=== PATIENT | female | born 1990 | race Caucasian/White ===

== ENCOUNTER 2022-07-01 10:15 | Emergency (ER) | payer OTHER, SELFPAY ==
--- NOTE | 2022-07-01 10:18 | ED.SKABFB ---
HPI - Skin/Abscess/Foreign Bdy General Chief complaint: Skin/Abscess/Foreign Body Stated complaint: LUMP ON NECK Time Seen by Provider: 07/01/22 10:18 Source: patient and RN notes reviewed History of Present Illness HPI narrative: Patient is a 31-year-old female presents to urgent care with complaints of a tender lump on the right side of her neck. Patient states that she had upper respiratory infection for approximately 2 weeks which has since resolved. However for the last couple days she has noted some lymph node swelling with increase tenderness. Patient denies any recent fevers, fatigue, nausea or vomiting. Denies of a sore throat. Patient states she did test negative for COVID. No other acute complaints. No acute distress noted. Patient aware of the plan of care. Some parts of this dictation were generated by voice recognition software and may contain typographical and/or grammatical inaccuracies. Related Data Home Medications Medication Instructions Recorded Confirmed albuterol sulfate 90 mcg/actuation inhalation 07/01/22 aerosol inhaler bupropion HCl 300 mg 24 hr tablet, mg PO 07/01/22 extended release desogestrel-e.estradiol 0.15 tablet 07/01/22 mg-0.02 mg(21)/e.estrad 0.01 mg() tablet (Viorele ()) metoprolol succinate 25 mg mg PO 07/01/22 tablet,extended release 24 hr sertraline 100 mg tablet mg 07/01/22 Allergies Allergy/AdvReac Type Severity Reaction Status Date / Time ethinyl estradiol [Jolessa] Allergy Unknown common Verified 07/01/22 10:23 migraine ( no aura) levonorgestrel [Jolessa] Allergy Unknown common Verified 07/01/22 10:23 migraine ( no aura) Review of Systems Review of Systems: CONSTITUTIONAL: Denies fever, chills, or sweats. EYES: Denies visual changes, redness, or discharge. ENT: Denies rhinorrhea, congestion, sore throat, or otalgia. Reports of lymph node swelling on the right CARDIOVASCULAR: Denies chest pain, palpitations, or edema. RESPIRATORY: Denies cough or dyspnea. GASTROINTESTINAL: Denies abdominal pain, nausea, vomiting, or diarrhea. GENITOURINARY: Denies dysuria or hematuria. SKIN: Denies rash or itching. MUSCULOSKELETAL: Denies back pain, joint pain, or myalgia. NEUROLOGIC: Denies headache, numbness, or weakness. All other systems reviewed are negative, except as documented in HPI. [facility] Family History Family History (System 06/16/19 @ 07:02 by Althea Tinsley) Other Diabetes mellitus Family history of headache disorder Social History Social History (System 06/16/19 @ 07:02 by Althea Tinsley) Smoking status: Never smoker Alcohol intake: current Comments At the time of my signature, I reviewed and agree with the nursing past medical, surgical, social, and family history. There is no relevant family history pertinent to the patient complaint. Exam Narrative: GENERAL: This is a well-nourished, well-developed patient, in no apparent distress. HEAD: normocephalic, atraumatic. EYES: PERRL. Sclera clear/white. Vision is grossly intact. EARS: External ears normal, auditory canals clear and without drainage, TMs normal without perforation. Hearing grossly intact. NOSE: External nose normal with no obvious nasal discharge, nares without redness, no rhinorrhea. THROAT: Mucous membranes moist, posterior pharynx clear. Moderate postnasal drainage NECK: Neck supple, mild tenderness to right tonsillar lymph node with mild lymphadenopathy SKIN: warm, intact with no suspicious lesions or rash, good texture and turgor. NEURO: awake, alert, and oriented to person, place and time. There were no obvious focal neurologic abnormalities. EXTREMITIES: No clubbing, cyanosis, or edema. Course Course Level of Care: Express Care Visit Vital Signs Vital signs: Vital Signs Temperature 97.6 F 07/01/22 10:23 Pulse Rate 88 07/01/22 10:23 Respiratory Rate 16 07/01/22 10:23 Blood Pressure 114/92 H
[2022-07-01 10:23] VITALS: BP 114/92; PULSE 88; RESP 16; TEMP 36.4; O2SAT 98
[2022-07-01 10:24] VITALS: BP 114/92; PULSE 88; RESP 16; TEMP 36.4; O2SAT 98
== END 2022-07-01 10:46 | disposition home or self-care (01) ==
PROVIDERS: Emergency Provider Nurse Practitioner Family
DX: R59.1 Generalized enlarged lymph nodes (principal)
CPT/HCPCS: 99203; G0463